=== PATIENT | male | born 1950 | race Caucasian/White ===

== ENCOUNTER 2017-12-18 10:40 | Inpatient (IN) ==
[2017-12-18] MEDS ORDERED: 0.9 % SODIUM CHLORIDE 1,000 ML IV ONE ×3 (10:53→11:25)
[2017-12-18] MEDS ORDERED: ONDANSETRON 4 MG/2 ML VIAL IV ONE (11:25)
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
--- NOTE | 2017-12-18 12:13 | XRay Report ---
HISTORY: Abdominal pain with nausea and vomiting FINDINGS: There are several loops of mildly distended small bowel. There is normal amount of air within the stomach and colon. Air-fluid levels are present in stomach small and large intestine. No free intra-abdominal air is present. There are vascular calcifications in the pelvis. Arthritis is seen in the lumbar spine. There is an old healed fracture left proximal femur. IMPRESSION: Ileus Interpreted and Authenticated by: Tulio Chacon 12/18/17
--- NOTE | 2017-12-18 12:13 | XRay Report ---
HISTORY: Status post ablation with nausea and vomiting FINDINGS: The lungs are clear. The heart, mediastinum, shefali and pleura are normal. IMPRESSION: Normal chest. Interpreted and Authenticated by: Tulio Chacon 12/18/17
[2017-12-18 12:39] LABS: Basophils # (Auto) 0 K/mcL (0.0-0.3); Basophils % (Auto) 0.1 % (0.0-2.0); Eosinophils # (Auto) 0.1 K/mcL (0.0-0.7); Eosinophils % (Auto) 0.6 % (0.0-7.0); Granulocytes % (Auto) 67.1 % (38.0-78.0); Lymphocytes # (Auto) 1.7 K/mcL (1.5-4.8); Lymphocytes % (Auto) 15.9 % (15.5-49.0); Mean Cell Volume 92.4 fL (80.0-100.0); Mean Corpuscular HGB Conc 34.8 g/dL (31.0-36.0); Mean Corpuscular Hemoglobin 32.2 pg (26.0-34.0); Monocytes # (Auto) 1.7 K/mcL (0.1-0.9); Monocytes % (Auto) 16.3 % (1.0-12.0); Platelet Count 214 K/mcL (140-440); RBC 4.24 M/mcL (4.50-5.90); Red Cell Distribution Width 14.7 % (11.5-14.5)
[2017-12-18 12:57] LABS: ALT/SGPT 22 U/l (0-40); Albumin 3.8 gm/dL (3.2-5.2); Albumin/Globulin Ratio 1.3 (1.0-2.3); Alkaline Phosphatase 49 U/L (39-117); Blood Urea Nitrogen 39 mg/dl (8-23); Lipase 21 U/L (7-60)
[2017-12-18] MEDS ORDERED: 0.9 % SODIUM CHLORIDE 1,000 ML IV SCH (13:45)
[2017-12-18 14:00] LABS: Appearance,Urine CLOUDY; Bacteria,Urine 0 /hpf (0); Bilirubin,Urine NEG (NEG); Color,Urine YELLOW; Glucose,Urine (UA) NEGATIVE (NEG); Leukocyte Esterase,Urine 75 /uL (NEG); Mucus,Urine MANY /hpf (0); Protein,Urine 100 mg/dL (NEG); Specific Gravity,Urine 1.015 (1.000-1.035); Urine Blood 0.03 mg/dL (<0.03); Urine Hyaline Cast 145 /lpf (0-2); Urine RBC 4 /hpf (0-1); Urine Squamous Epithelial Cell 0 /hpf (0-4); Urine WBC 36 /hpf (0-4); Urobilinogen,Urine NEG (NEG)
--- NOTE | 2017-12-18 14:26 | Nephrology Consult Note ---
History of Present Illness - Reason for Consult Patient information: Note initiated : 12/18/17 at 2:22 pm Service Date, if different from initiated Date: [] Patient: Jordan Yuen 67 y/o M admitted on for Nausea/vomiting. Chief Complaint: [] Consult date: 12/18/17 acute renal failure Requesting physician: Lio Jerez - Chief Complaint nausea, vomiting,diarrhea - History of Present Illness Patient is a 67 y/o pleasant white male with PMH of HTN, Afib and other medical issues who presented to the ED with nausea, vomiting, diarrhea The patient had ablation procedure done for his Afib on thursday this week, he states he ate a salad later that day and then started feeling sick, initially he had abdominal pain, nausea and then 2 episodes of vomiting and then profuse water diarrhea, this all started yesterday, he could not eat or drink much fluids. he was also dizzy and had low BP The patient denies fever he has no sick contacts he states he took some imodium last night and has had no diarrhea since then, no nausea, vomiting at present and was able to eat a sandwich this am he denies SOB, LE edema he has not made much urine though denies using NSAIDS no other concerns Patient on presentation hypotensive with BP in 80's systolic, labs pertinent for s.creatinine 4.4 and hence he is been hospitalised Review of Systems All systems PM: reviewed and no additional remarkable complaints except as stated (as in HPI) Past History Past medical history: HTN Afib s/p ablation this week Past surgical history: s/p ablation this week h/o hip replacement Past family history: not pertinent Past social history: lives with his in [place] uses smokeless tobacco and drinks 3-4 beers every day no h/o drug abuse Medications and Allergies Home Medications Medication Instructions Recorded Confirmed Type Warfarin [Coumadin] 5 mg PO DAILY #10 tab 09/11/17 12/18/17 Rx Carvedilol [Coreg] 25 mg PO BID 12/18/17 12/18/17 History Hydrochlorothiazide [Oretic] 25 mg PO DAILY 12/18/17 12/18/17 History Lisinopril [Zestril] 40 mg PO DAILY 12/18/17 12/18/17 History NIFEdipine [Nifedipine ER] 30 mg PO DAILY 12/18/17 12/18/17 History Omeprazole [PriLOSEC] 40 mg PO BIDAC 12/18/17 12/18/17 History Warfarin [Coumadin] 2.5 mg PO DAILY 12/18/17 12/18/17 History Allergies Allergy/AdvReac Type Severity Reaction Status Date / Time No Known Drug Allergies Allergy Verified 11/18/17 08:36 Exam - Vital Signs Vital signs: Temp Pulse Resp BP Pulse Ox 97.6 F 67 16 91/53 97 12/18/17 10:41 12/18/17 14:17 12/18/17 14:17 12/18/17 14:16 12/18/17 14:17 - General Appearance General appearance: appears started age EENT: mucous membranes moist Neck: no JVD Respiratory: clear Cardiology: no rub, no edema, regular rate, regular rhythm Gastrointestinal: no tenderness, no guarding Integumentary: warm and dry Neurologic: no focal deficit, alert and oriented x3 Musculoskeletal: no erythema, no cyanosis Psychiatric: mood/affect appropriate Results - Lab Results 12/18/17 12:17 12/18/17 12:17 Most recent lab results Calcium 8.3 mg/dl (8.6-10.4) L 12/18/17 12:17 Assessment and Plan (1) Acute kidney injury patient with acute renal failure baseline s.creatinine is 0.8 likely ATN from hypotension, pre renal state and recent use of contrast AU with multiple hyaline casts also has protein and WBC, will recheck this though and obtain work up if needed Fena is 0.8 renal imaging pending received 3L fluids started on maintenance IVF urinary studies and renal US ordered hold lisinopril/hctz and other antihypertensives for now avoid nephrotoxic meds recheck labs later today to ensure stable electrolytes avoid nephrotoxic meds dose meds to egfr will follow along Thank you for giving me an opportunity to participate in mr yuen's medical care, appreciate it Status: Acute
--- NOTE | 2017-12-18 14:41 | Ultrasound Report ---
Acute renal failure: FINDINGS: The right kidney measures 5.6 x 7.0 x 10.5 cm and the left measures 5.2 x 6.0 x 11.8 cm. The cortex is normal in thickness and echogenicity bilaterally. There are three cysts in the right kidney. The largest is located centrally and measures 1.8 x 1.9 x 2.6 cm. There is a subcapsular cyst laterally in the middle third which is 1.2 x 1.4 cm. There is another capsular cyst laterally in the lower third which measures 1.3 x 1.5 x 1.7 cm. There is an exophytic cyst in the lower pole of the left kidney which measures 1.4 x 1.6 x 1.9 cm. The kidneys are otherwise anatomically normal and there is no evidence of solid mass, calculus or hydronephrosis. Doppler shows normal blood flow to both kidneys. Doppler also demonstrated flow of urine through both ureters into the bladder. Before voiding the bladder contained 153 cc of urine. The bladder wall is asymmetrically thickened and irregular. It measures up to 5.6 mm in thickness. There is a suggestion of a small polypoid nodule on the posterior wall of the bladder. The patient was unable to void. IMPRESSION: Few simple cysts in both kidneys. The kidneys are otherwise anatomically normal and there is urine output bilaterally. Asymmetric thickening of the bladder wall with possible small intraluminal polyp or small mass Interpreted and Authenticated by: Tulio Chacon 12/18/17
[2017-12-18] MEDS ORDERED: ACETAMINOPHEN 325 MG TABLET PO PRN (14:52)
[2017-12-18] MEDS ORDERED: ONDANSETRON 4 MG/2 ML VIAL IV PRN (14:52)
[2017-12-18] MEDS: 0.9 % SODIUM CHLORIDE 1,000 ML IV SCH (15:00)
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
[2017-12-18] MEDS: cefTRIAXone 1 GM VIAL IV SCH (16:04)
[2017-12-18] MEDS: 0.9 % SODIUM CHLORIDE 10 ML SYRINGE IV SCH ×2 (16:06→21:52)
[2017-12-18] MEDS ORDERED: HEPARIN 5,000 UNIT/ML VIAL SQ SCH (21:00)
[2017-12-18] MEDS ORDERED: AMIODARONE HCL 400 MG PO SCH (21:00)
[2017-12-19] MEDS: 0.9 % SODIUM CHLORIDE 1,000 ML IV SCH ×2 (02:50→17:12)
[2017-12-19] MEDS: 0.9 % SODIUM CHLORIDE 10 ML SYRINGE IV SCH ×3 (05:38→20:47)
[2017-12-19 05:47] LABS: Basophils # (Auto) 0 K/mcL (0.0-0.3); Basophils % (Auto) 0.4 % (0.0-2.0); Eosinophils # (Auto) 0.1 K/mcL (0.0-0.7); Eosinophils % (Auto) 1.6 % (0.0-7.0); Granulocytes % (Auto) 65.1 % (38.0-78.0); Lymphocytes # (Auto) 1.1 K/mcL (1.5-4.8); Mean Cell Volume 93.1 fL (80.0-100.0); Mean Corpuscular Hemoglobin 31.7 pg (26.0-34.0); Monocytes # (Auto) 1.1 K/mcL (0.1-0.9); Monocytes % (Auto) 16.9 % (1.0-12.0); Platelet Count 212 K/mcL (140-440); RBC 4.07 M/mcL (4.50-5.90)
[2017-12-19 06:38] LABS: ALT/SGPT 17 U/l (0-40); Albumin 3.6 gm/dL (3.2-5.2); Albumin/Globulin Ratio 1.3 (1.0-2.3); Alkaline Phosphatase 50 U/L (39-117); Bilirubin,Direct < 0.2 mg/dL (0.0-0.3); Blood Urea Nitrogen 38 mg/dl (8-23); Gamma Glutamyl Transpeptidase 32 U/L (8-61); Uric Acid 6.7 mg/dL (2.5-8.0)
[2017-12-19] MEDS ORDERED: POTASSIUM CHLORIDE 40 MEQ in DEXTROSE 5% IN WATER 500 ML IV ONE (06:48)
[2017-12-19] MEDS ORDERED: POTASSIUM CHLORIDE 20 MEQ TABLET PO ONE (06:49)
[2017-12-19] MEDS ORDERED: MAGNESIUM SULFATE 2 GM/50 ML BAG IV ONE (08:04)
[2017-12-19] MEDS ORDERED: BENZOCAINE/MENTHOL 1 LOZENGE PO PRN (09:08)
[2017-12-19] MEDS ORDERED: BENZOCAINE/MENTHOL 1 LOZENGE PO ONE (09:18)
[2017-12-19] MEDS: cefTRIAXone 1 GM VIAL IV SCH (09:49)
--- NOTE | 2017-12-19 10:53 | Internal Med Progress Note ---
Medical - PN: Subj Patient information: Note initiated : 12/19/17 at 10:50 am Service Date, if different from initiated Date: [] Patient: Jordan Yuen a 67 y/o M admitted on 12/18/17 for Nausea/vomiting. Chief Complaint: [] Interval history: Mr. Yuen is a 67 year old M with h/o atrial fibrillation/ flutter, s/p ablation this thursday, presents to the hospital today for evaluation of dizziness weakness and not feeling well. The patient had the procedure on Thursday which according to him went well, at the end of the day he ate a salad. The patient was discharged home on morning. The patient did have some upset stomach on his way here, and since yesterday afternoon evening he has been having nausea vomiting and diarrhea multiple episodes of each. No blood in vomiting or diarrhea. No mucus in stools. The patient has been having intermittent blurry visions. Some dizziness. He therefore came to the ER today for further evaluation. He denies any fever chills no headache no changes in hearing no difficulty in swallowing no chest pain no shortness of breath his abdominal pain is better he was able to tolerate p.o. diet this morning. The patient has no new skin rashes he denies any new joint pains. In the emergency room patient was afebrile hemodynamically stable blood pressure on the lower end of normal, it was noted that he had a white count of 10, hemoglobin 13 platelets 214, INR 2.0, sodium 131 potassium 3.3 bicarbonate 20, creatinine 4.4, glucose 114. The patient has had a normal renal function in the recent past he has been admitted to the hospital with a diagnosis of acute kidney injury secondary to nausea vomiting and diarrhea. The UA was done which shows positive bacteria, pt denies h/o catherization during the recent hospital stay Neprology consulted via ER 12/19 Pt seen examined, doing well, creat much improved, K low 2.9, tolerating po well , good urine output, replace K and mg recheck labs in pm anticipate d/c in AM if creat continues to trend down Pertinent ROS: Denies headache, dizziness Denies chest pain, palpitations Denies cough or shortness of breath Denies abdominal pain, nausea or vomiting. - Constitutional Vitals: Vital Signs Temp Pulse Resp BP Pulse Ox 97.4 F 64 16 110/64 97 12/19/17 07:29 12/19/17 08:00 12/19/17 07:29 12/19/17 07:29 12/19/17 07:29 Period Temp Pulse Resp BP Sys/Gibbs Pulse Ox Last 24 Hr 97.4 F-99.6 F 58-69 11-19 68-116/50-64 95-100 Intake and Output 12/18/17 12/19/17 12/19/17 21:59 05:59 13:59 Intake Total 1122 / 1122 1287 / 1287 250 / 250 Output Total 675 / 675 525 / 525 200 / 200 Balance 447 / 447 762 / 762 50 / 50 Weight 167 lb 3.2 oz Intake & Output: Intake & Output 12/18/17 12/19/17 12/19/17 21:59 05:59 13:59 Intake Total 1122 / 1122 1287 / 1287 250 / 250 Output Total 675 / 675 525 / 525 200 / 200 Balance 447 / 447 762 / 762 50 / 50 Weight 167 lb 3.2 oz Intake: IV 47 / 47 887 / 887 50 / 50 Sodium Chloride 0.9% 1,000 ml @ 47 / 47 887 / 887 75 mls/hr IV .[id number] [facility] Rx#: [id number] Oral 1075 / 1075 400 / 400 200 / 200 Output: Void Amount 675 / 675 525 / 525 200 / 200 Other: Meal Dinner Breakfast Percent of Meal Consumed 100% 100% Feeding Ability Independent Urine Appearance Clear Urine Color Straw Exam: Constitutional; Afebrile, cooperative, alert, not in distress. Respiratory system: Air Entry equal on both sides, No crackles or wheezing, no rhonchi. CVS- Rate rhythm regular, S1,S2 heard, no gallop, no rub. 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 Medical - PN: Obj Da - Labs CBC & Chem 7: 12/19/17 04:00 12/19/17 04:00 Labs: Abnormal Lab Results 12/19/17 12/19/17 12/19/17 04:00 04:00 04:00 RBC 4.07 L Hgb 12.9 L Hct 37.9 L RDW 15.0 H MPV 7.3 L [place] % (Auto) 16.9 H Lymph # (Auto) 1.1 L [place] # (Auto) 1.1 H PT 25.5 H INR 2.3 H Sodium Potassium 2.9 L* Chloride Carbon Dioxide 21 L BUN 38 H Creatinine 2.1 H Glucose Calcium 7.9 L Phosphorus 2.6 L Urine Protein Urine Occult Blood Ur Leukocyte Esterase Urine RBC Urine WBC Hyaline Casts Urine Mucus 12/18/17 12/18/17 12/18/17 13:25 12:17 12:17 RBC Hgb Hct RDW MPV [place] % (Auto) Lymph # (Auto) [place] # (Auto) PT 23.0 H INR 2.0 H Sodium 131 L Potassium Chloride 95 L Carbon Dioxide 20 L BUN 39 H Creatinine 4.4 H Glucose 114 H Calcium 8.3 L Phosphorus Urine Protein 100 A Urine Occult Blood 0.03 A Ur Leukocyte Esterase 75 A Urine RBC 4 H Urine WBC 36 H Hyaline Casts 145 H Urine Mucus Many A 12/18/17 12:17 RBC 4.24 L Hgb Hct 39.2 L RDW 14.7 H MPV 7.1 L [place] % (Auto) 16.3 H Lymph # (Auto) [place] # (Auto) 1.7 H PT INR Sodium Potassium Chloride Carbon Dioxide BUN Creatinine Glucose Calcium Phosphorus Urine Protein Urine Occult Blood Ur Leukocyte Esterase Urine RBC Urine WBC Hyaline Casts Urine Mucus Meds: Medications Acetaminophen (Tylenol) 650 mg PO Q6HP PRN PRN Reason: PAIN/FEVER > 101 Ceftriaxone Sodium (Rocephin) 1 gm IV DAILY [facility] Last Admin: 12/19/17 09:49 Dose: 1 gm Sodium Chloride (Sodium Chloride 0.9%) 1,000 mls @ 75 mls/hr IV .[id number] [facility] Last Admin: 12/19/17 02:50 Dose: 75 mls/hr Ondansetron HCl (Zofran) 4 mg IV Q4HP PRN PRN Reason: Nausea And Vomiting Sodium Chloride (Saline Flush) 10 ml IV Q8 [facility] Last Admin: 12/19/17 05:38 Dose: 10 ml Throat Lozenges (Cepacol) 1 lozenge PO PRN PRN PRN Reason: Sore Throat Warfarin Sodium (Coumadin Per Pharmacy) 1 order PO DAILY@1400 [facility] Last Admin: 12/18/17 16:16 Dose: Not Given Medical - PN: A/P - Time Spent With Patient Total time spent is greater than 50% in coordination of care (as documented) at patient's floor/unit and/or counseling patient: - Narrative A/P Narrative: A/p Acute Kidney Injury Urinary tract infection Bladder thickening, asymmetric Atrial fibrillation Atrial flutter Heavy etoh consumption acute hypokalemia hypomangesemia Plan Continue IVF Replace mg and K, recheck K in evening Cret improving nicely, urine output adequate, Pt toleating po diet well anticipate d/c home in AM if continues to improve outpatient urology follow up for bladder mass/ thickening continue iv abx cultures pending dvt on coumadin with therapeutic INR full code. Medical - PN: Qual - VTE Deep Vein Thrombosis/Pulmonary Embolism Present on Admission: No
[2017-12-19] MEDS ORDERED: WARFARIN 5 MG TABLET PO ONE (14:00)
[2017-12-19 16:19] LABS: Blood Urea Nitrogen 30 mg/dl (8-23)
[2017-12-19] MEDS ORDERED: POTASSIUM CHLORIDE 20 MEQ PACKET PO ONE (16:31)
[2017-12-19] MEDS ORDERED: POTASSIUM CHLORIDE 20 MEQ PACKET ONE (17:19)
[2017-12-19] MEDS: CARVEDILOL 12.5 MG TABLET PO SCH (20:47)
[2017-12-20 05:23] LABS: Basophils # (Auto) 0 K/mcL (0.0-0.3); Basophils % (Auto) 0.2 % (0.0-2.0); Eosinophils # (Auto) 0.1 K/mcL (0.0-0.7); Eosinophils % (Auto) 1.6 % (0.0-7.0); Granulocytes % (Auto) 59.3 % (38.0-78.0); Lymphocytes # (Auto) 1.1 K/mcL (1.5-4.8); Lymphocytes % (Auto) 21.5 % (15.5-49.0); Mean Cell Volume 93.1 fL (80.0-100.0); Mean Corpuscular HGB Conc 34.3 g/dL (31.0-36.0); Mean Corpuscular Hemoglobin 31.9 pg (26.0-34.0); Monocytes # (Auto) 0.9 K/mcL (0.1-0.9); Monocytes % (Auto) 17.4 % (1.0-12.0); Platelet Count 185 K/mcL (140-440); RBC 3.56 M/mcL (4.50-5.90); Red Cell Distribution Width 14.6 % (11.5-14.5)
[2017-12-20] MEDS: 0.9 % SODIUM CHLORIDE 10 ML SYRINGE IV SCH (05:37)
[2017-12-20 06:05] LABS: ALT/SGPT 14 U/l (0-40); Albumin 3.4 gm/dL (3.2-5.2); Albumin/Globulin Ratio 1.3 (1.0-2.3); Alkaline Phosphatase 48 U/L (39-117); Bilirubin,Direct < 0.2 mg/dL (0.0-0.3); Blood Urea Nitrogen 17 mg/dl (8-23); Gamma Glutamyl Transpeptidase 28 U/L (8-61); Uric Acid 5.4 mg/dL (2.5-8.0)
[2017-12-20] MEDS ORDERED: OMEPRAZOLE 20 MG CAPSULE PO SCH (07:30)
[2017-12-20] MEDS: CARVEDILOL 12.5 MG TABLET PO SCH (08:11)
[2017-12-20] MEDS: cefTRIAXone 1 GM VIAL IV SCH (08:11)
[2017-12-20] MEDS ORDERED: NIFEdipine 30 MG TAB.XL.24H PO SCH (09:00)
--- NOTE | 2017-12-20 09:00 | Discharge Summary ---
Medical - DS: Prov Patient information: Note initiated : 12/20/17 at 8:58 am Service Date, if different from initiated Date: [] Patient: Jordan Yuen 67 y/o M admitted on 12/18/17 for Nausea/vomiting. Chief Complaint: [] Date of admission: 12/18/17 14:41 Discharge date: 12/20/17 Primary care physician: Quita Spears Admitting clinician: Vanda Faulkner Consults: 12/18/17 13:06 Consult to Physician [CONS] Stat Comment: Consulting Provider: Jessica Ramirez Reason For Exam: Physician to Consult 12/18/17 13:07 Consult to Physician [CONS] Stat Comment: Consulting Provider: Vanda Faulkner Reason For Exam: Physician to Consult Discharging clinician: Vanda Faulkner Medical - DS: Meds - Discharge Medications Prescriptions: Cefuroxime [Ceftin] 500 mg PO Q12 #10 tab Active and Home Medications: Home Medications Warfarin [Coumadin] 5 mg PO DAILY #10 tab 09/11/17 [Rx Confirmed 12/18/17 Last Taken 12/18/17 06:00] Carvedilol [Coreg] 25 mg PO BID 12/18/17 [History Confirmed 12/18/17 Last Taken 12/18/17 08:00] Hydrochlorothiazide [Oretic] 25 mg PO DAILY 12/18/17 [History Confirmed Last Taken 12/18/17 08:00] Lisinopril [Zestril] 40 mg PO DAILY 12/18/17 [History Confirmed 12/18/17 Last Taken 12/18/17 08:00] NIFEdipine [Nifedipine ER] 30 mg PO DAILY 12/18/17 [History Confirmed 12/18/17 Last Taken 12/18/17 08:00] Omeprazole [PriLOSEC] 40 mg PO BIDAC 12/18/17 [History Confirmed 12/18/17 Last Taken 12/18/17 08:00] Warfarin [Coumadin] 2.5 mg PO DAILY 12/18/17 [History Confirmed 12/18/17 Last Taken 12/15/17 06:00] Cefuroxime [Ceftin] 500 mg PO Q12 #10 tab 12/20/17 [Rx Last Taken Unknown] Medical - DS: Hosp Hospital course: Mr. Yuen is a 67 year old M with h/o atrial fibrillation/ flutter, s/p ablation this thursday, presented to the hospital today for evaluation of dizziness weakness and not feeling well. The patient had the procedure on Thursday which according to him went well, at the end of the day he ate a salad. The patient was discharged home on morning. The patient did have some upset stomach on his way here, and since yesterday afternoon evening he has been having nausea vomiting and diarrhea multiple episodes of each. No blood in vomiting or diarrhea. No mucus in stools. The patient has been having intermittent blurry visions. Some dizziness. He therefore came to the ER today for further evaluation. He denies any fever chills no headache no changes in hearing no difficulty in swallowing no chest pain no shortness of breath his abdominal pain is better he was able to tolerate p.o. diet this morning. The patient has no new skin rashes he denies any new joint pains. In the emergency room patient was afebrile hemodynamically stable blood pressure on the lower end of normal, it was noted that he had a white count of 10, hemoglobin 13 platelets 214, INR 2.0, sodium 131 potassium 3.3 bicarbonate 20, creatinine 4.4, glucose 114. The patient has had a normal renal function in the recent past he has been admitted to the hospital with a diagnosis of acute kidney injury secondary to nausea vomiting and diarrhea. Acute kidney injury- Due to dehydration, responded well to IV fluids, nephrololgy consulted, no need for HD, pt had good urine output. At the time of discharge his Creat was back to normal 0.9 The patient will be discharged home on his usual medications, this includes lisinopril and hctz, he will need to follow up with Dr Ramirez next week to ensure that the renal function remains stable once he resumes these medications. ATrial fibrillation-rate controlled, s/;p ablation, on coumadin, to continue home dose of coumadin, UTI- noted on UA, urine culture neg, will d/c on cefuroxime for 5 more days. Bladder irregularity/ polyp/ tumor- Renal USG done for Renal failure showed an irregular structure in the bladder, the patient does have ua which was not clean , hwoever given his use of tobacco and his age/sex he is at risk for bladder tumors, I have advised him to make an appointment with Urology Dr Guerra for further evaluation. Referral to be ordered at discharge. The rest of the hospiotal stay was uneventful, no changes in home meds, pt is ambulator, tolerating po diet well at the time of discharge. Discharge diagnosis: Acute Kidney injury, UTi, Bladder tumor? - Time Spent with Patient Total time spent providing and/or coordinating discharge services: Less than 30 minutes Medical - DS: Exam - Constitutional Vitals: Vital Signs Temp Pulse Resp BP BP Pulse Ox 12/20/17 04:00 97.8 F 66 16 145/76 99 12/20/17 00:00 98.5 F 64 14 130/68 97 12/19/17 19:37 98.8 F 76 16 147/81 100 12/19/17 16:00 98.4 F 16 161/73 97 12/19/17 12:00 97.7 F 18 146/76 97 Intake and Output 12/19/17 12/20/17 12/20/17 21:59 05:59 13:59 Intake Total 1200 / 1200 800 / 800 360 / 360 Output Total 225 / 225 450 / 450 700 / 700 Balance 975 / 975 350 / 350 -340 / -340 Intake: IV 1000 / 1000 Sodium Chloride 0.9% 1,000 ml @ 1000 / 1000 75 mls/hr IV .[id number] [facility] Rx#: [id number] Oral 200 / 200 800 / 800 360 / 360 Output: Void Amount 225 / 225 450 / 450 700 / 700 Other: Meal Breakfast Percent of Meal Consumed 100% Feeding Ability Independent Urine Appearance Clear Urine Color Straw Weight 177 lb 9.6 oz Additional comments: Constitutional; Afebrile, cooperative, alert, not in distress. Respiratory system: Air Entry equal on both sides, No crackles or wheezing, no rhonchi. CVS- Rate rhythm regular, S1,S2 heard, no gallop, no rub. 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 Medical - DS: Data Labs on day of discharge: Labs from last 24 hours 12/20/17 12/20/17 12/20/17 04:00 04:00 04:00 WBC 5.1 RBC 3.56 L Hgb 11.4 L Hct 33.1 L MCV 93.1 MCH 31.9 MCHC 34.3 RDW 14.6 H Plt Count 185 MPV 7.5 Gran % 59.3 Lymph % (Auto) 21.5 [place] % (Auto) 17.4 H Eos % (Auto) 1.6 Baso % (Auto) 0.2 Gran # 3.0 Lymph # (Auto) 1.1 L [place] # (Auto) 0.9 Eos # (Auto) 0.1 Baso # (Auto) 0 PT 26.2 H INR 2.4 H Sodium 136 Potassium 3.8 Chloride 103 Carbon Dioxide 22 Anion Gap 11.0 BUN 17 Creatinine 0.9 GFR Calculation 88 Glucose 88 Uric Acid 5.4 Calcium 7.6 L Phosphorus 1.9 L Magnesium 1.9 Total Bilirubin 0.2 Direct Bilirubin < 0.2 GGT 28 AST 15 ALT 14 Alkaline Phosphatase 48 Lactate Dehydrogenase 221 Total Protein 6.0 Albumin 3.4 Globulin 2.6 Albumin/Globulin Ratio 1.3 Triglycerides 114 12/19/17 15:13 WBC RBC Hgb Hct MCV MCH MCHC RDW Plt Count MPV Gran % Lymph % (Auto) [place] % (Auto) Eos % (Auto) Baso % (Auto) Gran # Lymph # (Auto) [place] # (Auto) Eos # (Auto) Baso # (Auto) PT INR Sodium 135 Potassium 3.4 Chloride 105 Carbon Dioxide 20 L Anion Gap 10.0 BUN 30 H Creatinine 1.3 H GFR Calculation 56 Glucose 104 Uric Acid Calcium 7.9 L Phosphorus Magnesium Total Bilirubin Direct Bilirubin GGT AST ALT Alkaline Phosphatase Lactate Dehydrogenase Total Protein Albumin Globulin Albumin/Globulin Ratio Triglycerides Medical - DS: A/P - Patient/Caregiver Discharge Instructions Activity: increase activity as tolerated Diet: Cardiac Additional Instructions: Please take antibiotics for another 5 days Please follow up with Your PCP early next week, for an INR check Follow up with Dr Ramirez next week to ensure your Kidney function remains stable, Keep yourself well hydrated. Your Kidney ultrasound showed an irregular mass / structure in the bladder wall , you will need further evaluation for this. Please make sure you see a urologist for further evaluation. I have made a referral to Dr Guerra. GO to the ER if worsening symptoms, chest pain, shortness of breath, fever or any other acute concerns. Prescriptions: Cefuroxime [Ceftin] 500 mg PO Q12 #10 tab Other Amb Orders: Discharge Referrals Facility: [facility], Location: Conversion - Follow up Plan Follow up with: Quita Spears MD [Primary Care Provider] - Jessica Ramirez MD [Physician] - Dewayne Guerra MD [Physician] - Disposition: Home, Self-Care Prognosis: Good Rehab Potential: Good I certify that the patient requires SNF services: No Overall status at discharge: patient is back to baseline Medical - DS: Qual - VTE Deep Vein Thrombosis/Pulmonary Embolism Present on Admission: No
== END 2017-12-20 09:40 | disposition home or self-care (01) | DRG 683 ==
LOC: ED 10:40 → ICU 14:41
PROVIDERS: ADMIT Internal Medicine; ATTEND Internal Medicine